=== PATIENT | female | born 1990 | race Two or more races ===

== ENCOUNTER 2019-06-10 23:35 | Emergency (ER) | payer MEDICAID, OTHER ==
[~2019-06-10] VITALS: Ht 167.6 cm; Wt 67.1 kg
--- NOTE | 2019-06-11 | NUR ---
PT MARCO 89, NON-VERBAL. PER "SHE HAS TAKEN SOME GUMMY THAT CONTAINED WEED AND WAS ACTING ABNORMAL AT HOME". FALL PRECAUTIONS IMPLEMENTED. NO ACUTE DISTRESS NOTED AT THIS TIME. PT CONNECTED TO THE MONITOR AND POX
[2019-06-11] MEDS ORDERED: LORAZEPAM INJ 2 MG/ML VIAL ONE (00:03)
--- NOTE | 2019-06-11 00:23 | NUR ---
GI BRANTLEY ARRIVED AND ARE AT THE BEDSIDE.
[2019-06-11] MEDS ORDERED: LORAZEPAM INJ 2 MG/ML VIAL IM ONE ×2 (00:30)
--- NOTE | 2019-06-11 03:24 | NUR ---
PT IS STILL NON VERBAL BUT RESPONSIVE TO MECHANICAL STIMULI
--- NOTE | 2019-06-11 03:24 | NUR ---
VSS AT THIS TIME. NO ACUTE DISTRESS NOTED
--- NOTE | 2019-06-11 03:29 | NUR ---
WALTER TRAMMELL (FRIEND/ROOMMATE)
[2019-06-11 03:42] VITALS: BP 114/58
--- NOTE | 2019-06-11 03:42 | NUR ---
Patient discharged to home in stable condition. Written and verbal after care instructions given. Patient verbalizes understanding of instruction.
== END 2019-06-11 03:43 | disposition home or self-care (01) ==
LOC: ER 23:36
DX: F41.9 Anxiety disorder, unspecified (principal); F12.10 Cannabis abuse, uncomplicated
CPT/HCPCS: 82962; 96372; 99284; J2060